=== PATIENT | female | born 1995 | race Caucasian/White ===

== ENCOUNTER 2020-09-07 07:40 | Emergency (ER) | payer BC, SELFPAY ==
--- NOTE | ~2020-09-07 | XR_ITS ---
EXAMINATION: XR abdomen obstructive series DATE: 09/07/2020 09:21 INDICATION: Abdominal pain. Ulcerative colitis post colectomy. TECHNIQUE: Frontal supine and upright views of the abdomen were obtained. COMPARISON: CT dated 06/10/2019 FINDINGS: Suture line in the pelvis consistent with given history of prior colectomy. No dilated loops of gas-f illed bowel to suggest obstruction. No pneumatosis or free intraperitoneal gas. Lung bases are clear. Heart size is normal. Minimal lumbar levocurvature. IMPRESSION: 1. No free intraperitoneal gas or dilated gas-filled loops of bowel to suggest obstruction. Reviewed, dictated and finalized at location A. [employer]
[2020-09-07 07:52] VITALS: BP 120/77; PULSE 78; RESP 16; TEMP 36.4; O2SAT 100
[2020-09-07 08:23] LABS: Basophils Absolute Auto 0.1 K/mm3 (0.0-0.1); Basophils Percent Auto 1.1 % (0.2-1.2); Eosinophils Absolute Auto 0.8 K/mm3 (0-0.3); Eosinophils Percent Auto 13.5 % (0-4.4); Hematocrit 39.8 % (37.0-47.0); Hemoglobin 13.3 g/dL (12.0-15.0); Immature Granulocyte Absolute 0.01 K/mm3 (0.00-0.031); Immature Granulocyte Percent A 0.2 % (0-0.5); Lymphocytes Absolute Auto 2.29 K/mm3 (0.9-3.2); Lymphocytes Percent Auto 37.1 % (18.3-44.2); Mean Corpuscular HGB Conc 33.4 g/dl (32-36); Mean Corpuscular Hemoglobin 28.4 pg (26-34); Mean Platelet Volume 8.6 fl (7.4-10.4); Monocytes Absolute Auto 0.5 K/mm3 (0.1-0.6); Monocytes Percent Auto 7.5 % (2.6-8.5); Neutrophils Absolute Auto 2.5 K/mm3 (1.3-6.7); Neutrophils Percent Auto 40.6 % (45.5-73.1); Platelet Count Result 322 k/mm3 (150-375); Red Blood Count 4.68 M/mm3 (4.2-5.4); Red Cell Distribution Width 13.9 % (11.5-14.5); White Blood Count 6.2 K/mm3 (4.5-10.0)
[2020-09-07 08:37] LABS: Add Urine Microscopic? YES; Appearance Urine Cloudy (Clear); Bilirubin Urine Negative (Negative); Blood Urine Negative (Negative); Color Urine Yellow (Yellow); Glucose Urine UA Negative (Negative); Ketones Urine Negative (Negative); Leukocyte Esterase Ur Negative LEU/UL (Negative); Mucus Urine Heavy /lpf; Nitrate Urine Negative (Negative); Protein Urine 1+ mg/dL (Negative); Squamous Epithelial Cell Urine Many /hpf (Few); Transitional Epi Cells Urine Rare /hpf (None Seen)
[2020-09-07 08:38] LABS: Alanine Aminotransferase 17 U/L (4-35); Albumin Level 3.8 g/dL (3.5-5.1); Alkaline Phosphatase 45 U/L (38-126); Anion Gap 2 mmol/L (8-16); Aspartate Amino Transferase 27 U/L (14-36); Bilirubin,Total 0.3 mg/dL (0.2-1.3); Blood Urea Nitrogen 11 mg/dL (7-17); Calcium 8.4 mg/dL (8.4-10.2); Carbon Dioxide 27 mmol/L (22-30); Chloride 108 mmol/L (98-107); Estimated CRCL calculation 92 ml/min; Estimated Glomerular Filt Rate > 60; Glucose 101 mg/dL (65-105); Lipase 139 U/L (23-300); Potassium 3.9 mmol/L (3.4-5.0); Sodium 137 mmol/L (137-145)
[2020-09-07 08:53] LABS: Specific Grav Ur 1.032 (1.001-1.035)
--- NOTE | 2020-09-07 09:05 | ED.ABDPAIN ---
HPI - Abdominal Pain General Chief Complaint: Abdominal Pain Stated Complaint: abd pain Time Seen by Provider: 09/07/20 08:16 Source: patient Mode of arrival: ambulatory Limitations: no limitations History of Present Illness HPI narrative: A 25-year-old female comes into the emergency department today with complaints of abdominal pain and distention. Patient states that she was having sharp pain coming in earlier. Patient notes that when she got here she had to use the restroom, was able to provide a urine sample and passed gas. Patient notes that this did significantly improve her symptoms. Patient notes that she does have a history of ulcerative colitis with a total colectomy. Patient now has a J-pouch after her ostomy was removed. She does note that she has issues with blockages from time to time. Patient states that now that she has passed gas she is feeling much better. Related Data Home Medications Medication Instructions Recorded Confirmed Allergy Relief (fluticasone) 1 spray EACHNARE PRN PRN 06/10/19 06/10/19 Qvar RediHaler 2 inh INHALATION DAILY 06/10/19 06/10/19 calcium citrate-vitamin D3 2 tablet PO DAILY 06/10/19 06/10/19 cetirizine [Zyrtec] 10 mg PO DAILY PRN 06/10/19 06/10/19 escitalopram oxalate 10 mg PO DAILY 06/10/19 06/10/19 ferrous sulfate 325 mg PO BID 06/10/19 06/10/19 levonorgestrel-ethinyl estrad 1 tablet PO DAILY 06/10/19 06/10/19 [Larissia] albuterol See Rx Instructions .ROUTE 09/07/20 .COMPLEX PRN Allergies Allergy/AdvReac Type Severity Reaction Status Date / Time No Known Allergies Allergy Verified 09/07/20 07:59 Review of Systems Review of Systems: Narrative: CONSTITUTIONAL: Denies fever, chills, or sweats. EYES: Denies visual changes, redness, or discharge. ENT: Denies rhinorrhea, congestion, sore throat, or otalgia. CARDIOVASCULAR: Denies chest pain, palpitations, or edema. RESPIRATORY: Denies cough or dyspnea. GASTROINTESTINAL: Denies abdominal pain, nausea, vomiting, or diarrhea. GENITOURINARY: Denies dysuria or hematuria. SKIN: Denies rash or itching. MUSCULOSKELETAL: Denies back pain, joint pain, or myalgia. NEUROLOGIC: Denies headache, numbness, dizziness, or weakness. PSYCHIATRIC: Denies anxiety or depression. [facility] Past Medical History Medical History Asthma Hodgkin lymphoma In remission with chemotherapy and radiation Ulcerative colitis Colectomy Surgical History Surgical History H/O colectomy Family History Family History Grandparent Acute myocardial infarction Prostate carcinoma Breast cancer Mother Asthma Hypertension Father Asthma Ulcerative colitis Social History Social History Social History: She has a significant other. She Has no children. She is working on her master's degree. She is single. 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 Her durable power ip attorney is her mother. The patient designates herself to be a full code. Smoking status: Never smoker Alcohol intake: current Drinks per week: 1 Substance use: never Substance use type: does not use Additional occupation/education comments: She is a student and works in daycare Gender identity (if verbalized by the patient): Female Spiritual care concerns: No Agree to blood products: Yes Exam Narrative: Exam Narrative: GENERAL: Well-appearing, well-nourished, and in no acute distress. HEAD: Normocephalic, atraumatic. EYES: PERRLA and EOMI. ENT: Nares clear, no rhinorrhea or epistaxis. Mucous membranes moist. NECK: Supple. No adenopathy or masses. No carotid bruits or JVD CHEST: Clear to auscultation. No respiratory distress. No wheezes rales or rhonchi HEART: Regular rate and rhythm. No murmu
== END 2020-09-07 10:54 | disposition home or self-care (01) ==
PROVIDERS: Emergency Provider Emergency Medicine
DX: R10.31 Right lower quadrant pain (principal); K51.90 Ulcerative colitis, unspecified, without complications; J45.909 Unspecified asthma, uncomplicated; Z85.71 Personal history of Hodgkin lymphoma; Z90.49 Acquired absence of other specified parts of digestive tract
CPT/HCPCS: 36415; 74019; 80053; 81001; 81025; 83690; 85025; 99283